=== PATIENT | male | born 1960 | race Caucasian/White ===

== ENCOUNTER 2020-09-17 11:16 | Emergency (ER) | payer SELFPAY ==
[~2020-09-17] VITALS: Ht 182.8 cm; Wt 124.7 kg
[2020-09-17] MEDS ORDERED: CEPHALEXIN500 M1 PO (13:05)
[2020-09-17] MEDS ORDERED: NAPROSYN500 MG PO (13:24)
== END 2020-09-17 13:30 | disposition home or self-care (01) ==
LOC: ED 11:16
DX: S61.012A Laceration without foreign body of left thumb without damage to nail, initial encounter (principal); S61.211A Laceration without foreign body of left index finger without damage to nail, initial encounter; X58.XXXA Exposure to other specified factors, initial encounter; Y93.89 Activity, other specified; Y92.89 Other specified places as the place of occurrence of the external cause; Y99.8 Other external cause status